=== PATIENT | female | born 1980 | race Caucasian/White ===

== ENCOUNTER 2018-01-07 18:40 | Inpatient (IN) | payer OTHER ==
[2018-01-07] MEDS ORDERED: BOOSTRIX IM ONE (18:53)
[2018-01-07] MEDS ORDERED: MORPHINE IV ONE ×2 (18:57→22:01)
[2018-01-07] MEDS ORDERED: MORPHINE ONE (18:58)
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
[2018-01-07] MEDS ORDERED: ANCEF/NS 1 GM/50 ML 1 GM/50 ML BAG IV ONE (19:30)
[2018-01-07] MEDS ORDERED: NACL 0.9% 1000 ML 1,000 ML ONE (19:47)
[2018-01-07] MEDS ORDERED: XYLOCAINE 1% 20 mL INFILTRATI ONE (20:00)
[2018-01-07 20:09] LABS: Basophils # (Auto) 0.1 K/mm3 (0.0-0.1); Basophils % (Auto) 0.6 % (0.0-1.8); Eosinophils # (Auto) 0.1 K/mm3 (0.0-0.4); Eosinophils % (Auto) 0.8 % (0.0-4.3); Hematocrit 39.3 % (30.3-42.9); Hemoglobin 13.2 gm/dl (10.1-14.3); Lymphocytes # (Auto) 2.1 K/mm3 (1.2-5.4); Lymphocytes % (Auto) 20.8 % (13.4-35.0); Mean Corpuscular HGB Conc 34 % (30-34); Mean Corpuscular Hemoglobin 30 pg (28-32); Mean Corpuscular Volume 91 fl (79-97); Monocytes # (Auto) 0.6 K/mm3 (0.0-0.8); Monocytes % (Auto) 5.9 % (0.0-7.3); Platelet Count 243 K/mm3 (140-440); Red Blood Count 4.34 M/mm3 (3.65-5.03); Red Cell Distribution Width 13.9 % (13.2-15.2)
[2018-01-07 20:31] LABS: BUN/Creatinine Ratio 25; Blood Urea Nitrogen 15 mg/dL (7-17); Calcium 8.6 mg/dL (8.4-10.2); Hemolysis Index 15
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
[2018-01-07] MEDS ORDERED: TYLENOL PO PRN (23:00)
[2018-01-07] MEDS ORDERED: ZOFRAN IV PRN (23:00)
[2018-01-07] MEDS ORDERED: SODIUM CHLORIDE FLUSH SYRINGE 10 ML IV PRN (23:00)
[2018-01-07] MEDS ORDERED: D50W (25GM) Syringe IV PRN (23:00)
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
[2018-01-08] MEDS: MORPHINE IV PRN ×4 (02:56→19:43)
[2018-01-08 05:25] LABS: Basophils % (Auto) 0.3 % (0.0-1.8); Eosinophils % (Auto) 0.2 % (0.0-4.3); Hematocrit 37.9 % (30.3-42.9); Hemoglobin 12.6 gm/dl (10.1-14.3); Lymphocytes # (Auto) 2.7 K/mm3 (1.2-5.4); Lymphocytes % (Auto) 28.2 % (13.4-35.0); Mean Corpuscular HGB Conc 33 % (30-34); Mean Corpuscular Hemoglobin 30 pg (28-32); Mean Corpuscular Volume 90 fl (79-97); Monocytes # (Auto) 0.6 K/mm3 (0.0-0.8); Monocytes % (Auto) 6.1 % (0.0-7.3); Platelet Count 272 K/mm3 (140-440); Red Blood Count 4.21 M/mm3 (3.65-5.03); Red Cell Distribution Width 14.1 % (13.2-15.2)
[2018-01-08 05:41] LABS: BUN/Creatinine Ratio 23; Blood Urea Nitrogen 9 mg/dL (7-17); Calcium 8.9 mg/dL (8.4-10.2); Hemolysis Index 1
[2018-01-08] MEDS ORDERED: ZEMURON IV ONE (11:43)
[2018-01-08] MEDS ORDERED: SUBLIMAZE ONE (11:43)
[2018-01-08] MEDS ORDERED: XYLOCAINE MPF 2% ONE (11:43)
[2018-01-08] MEDS ORDERED: DIPRIVAN 10 MG/ML IV ONE (11:43)
--- NOTE | 2018-01-08 12:10 | Anesthesia Day of Surgery ---
Anesthesia Day of Surgery - Day of Surgery Patient Examined: Yes Patient H&P Reviewed: Yes Patient is NPO: Yes Beta Blockers: No Cardiac Clearance: No Pulmonary Clearance: No
--- NOTE | 2018-01-08 12:10 | Anesthesia Consultation ---
Anesthesia Consult and Med Hx - Airway Anesthetic Teeth Evaluation: Good Mental/Hyoid Distance: Adequate Mallampati Class: Class II Intubation Access Assessment: Probably Good - Pulmonary Exam CTA: Yes - Cardiac Exam Cardiac Exam: RRR - Pre-Operative Health Status ASA Pre-Surgery Classification: ASA3 Proposed Anesthetic Plan: General - Pulmonary Hx Asthma: No COPD: No Hx Pneumonia: No - Cardiovascular System Hx Hypertension: Yes - Endocrine Hx End Stage Renal Disease: No
[2018-01-08] MEDS ORDERED: ANCEF/STERILE WATER 2 GM/20 ML IV NR (13:00)
[2018-01-08] MEDS ORDERED: NACL 0.9% 1000 ML 1,000 ML IV SCH (13:00)
[2018-01-08] MEDS ORDERED: MARCAINE 0.5% 30 ML INFILTRATI ONE (13:33)
[2018-01-08] MEDS ORDERED: TORADOL ONE (13:33)
[2018-01-08] MEDS ORDERED: NACL 0.9% 250ML 250 ML ONE (13:33)
[2018-01-08] MEDS ORDERED: MORPHINE ONE (13:33)
[2018-01-08] MEDS ORDERED: NACL 0.9% 250ML IRRIGATION ONE (14:14)
[2018-01-08] MEDS ORDERED: NACL 0.9% IR ONE (14:14)
[2018-01-08] MEDS ORDERED: TORADOL IV ONE (14:15)
[2018-01-08] MEDS ORDERED: MORPHINE IV ONE (14:15)
[2018-01-08] MEDS ORDERED: MARCAINE 0.5% INFILTRATI ONE (14:15)
[2018-01-08] MEDS ORDERED: ROBINUL ONE (15:03)
[2018-01-08] MEDS ORDERED: BLOXIVERZ ONE (15:03)
[2018-01-08] MEDS ORDERED: ZOFRAN ONE (15:03)
[2018-01-08] MEDS: DILAUDID IV PRN ×2 (15:37→15:45)
--- NOTE | 2018-01-08 15:58 | Procedure Note ---
Date of procedure: 01/08/18 Pre-op diagnosis: laceration right posterior calf Post-op diagnosis: same (lacerated flexor tendons and hallux is longus tendon lacerated posterior tibial nerve as well as lacerated Achilles tendon) Procedure: Exploration right calf laceration with repair of posterior tibial nerve flexor tendons including the flexor hallucis longus as well as the tendo Achilles Procedure The patient was brought to the [facility] ER table in the supine position following induction and intubation by anesthesia the patient was then turned into the prone position at which point the right lower extremity was prepped and draped in the usual sterile manner the leg was then exsanguinated followed by inflation of the pneumatic tourniquet to 300 mmHg suture from the ER was removed the patient was noted to have a 45 cm transverse laceration in the posterior aspect of her leg the incision was then enlarged both proximally and distally using Z-plasties the wound was explored deeply she was noted to have superficially 80% laceration to the Achilles tendon and carried it is inspection deeper the patient was noted to have a complete laceration of the posterior tibial nerve as well as a laceration essentially down to the posterior aspect of the tibia with involvement of her flexor tendons and flexor hallucis longus next the decision was made to repair the lacerated posterior tibial nerve this was done using magnification 6-0 nylon sutures were used to repair the perineural sheath this was done circumferentially for repair of the nerve attention was then turned to repairing the flexor tendons using #2 FiberWire suture and this these structures were repaired and into in the Achilles tendon was also repaired again using nonabsorbable FiberWire suture the wound was copiously irrigated and was closed primarily. Dressings were applied the ankle was maintained in maximum dorsiflexion to reduce tension on the nerve and tendon repair a well-padded posterior splint was applied the patient was then turned back into the supine position where she was extubated and taken to postanesthesia recovery Anesthesia: VIVIENNE Surgeon: VIRGINIA DUMONT Estimated blood loss: minimal Pathology: none Condition: stable Disposition: PACU
[2018-01-08] MEDS ORDERED: SODIUM CHLORIDE FLUSH SYRINGE 10 ML IV NR (16:00)
--- NOTE | 2018-01-08 16:33 | Progress Note ---
Assessment and Plan Assessment and plan: Assessment Acute Post Op pain Acute Archilles tear s/p surgery Elevated BP 2/2 pain Plan post op care optimal pain control inputs and reccs of the Ortho specialist appreciated am labs further pt mgt per hospital course Disposition Plan: per hospital course Total Time Spent with Patient (Minutes): 25 mins History Interval history: Pt admitted yesterday with a turn Right Archilles tendon. Had surgery this afternoon. Pt seen in PACU. Pt seen and exam, c/o severe post op pain to her Right leg. [employer]GE[employer] by bedside Hospitalist Physical - Constitutional Vitals: Temp Pulse Resp BP Pulse Ox 98.7 F 65 15 131/79 100 01/08/18 16:00 01/08/18 16:15 01/08/18 16:15 01/08/18 16:15 01/08/18 16:15 General appearance: Present: mild distress, well-nourished - EENT Eyes: Present: PERRL ENT: hearing intact, clear oral mucosa, dentition normal - Neck Neck: Present: supple, normal ROM - Respiratory Respiratory: bilateral: CTA, negative: rales, rhonchi, wheezing - Cardiovascular Rhythm: regular Heart Sounds: Present: S1 & S2 - Extremities Extremities: pulses intact Extremity abnormal: other (surgical dressing intact) Peripheral Pulses: within normal limits - Abdominal General gastrointestinal: soft, non-tender, normal bowel sounds - Integumentary Integumentary: Present: clear, warm, dry - Psychiatric Psychiatric: appropriate mood/affect, intact judgment & insight - Neurologic Neurologic: CNII-XII intact - Allied Health Allied health notes reviewed: nursing Results - Labs CBC & Chem 7: 01/08/18 04:40 01/08/18 04:40 Labs: Laboratory Last Values WBC 9.7 K/mm3 (4.5-11.0) 01/08/18 04:40 RBC 4.21 M/mm3 (3.65-5.03) 01/08/18 04:40 Hgb 12.6 gm/dl (10.1-14.3) 01/08/18 04:40 Hct 37.9 % (30.3-42.9) 01/08/18 04:40 MCV 90 fl (79-97) 01/08/18 04:40 MCH 30 pg (28-32) 01/08/18 04:40 MCHC 33 % (30-34) 01/08/18 04:40 RDW 14.1 % (13.2-15.2) 01/08/18 04:40 Plt Count 272 K/mm3 (140-440) 01/08/18 04:40 Lymph % (Auto) 28.2 % (13.4-35.0) 01/08/18 04:40 Greenlee % (Auto) 6.1 % (0.0-7.3) 01/08/18 04:40 Eos % (Auto) 0.2 % (0.0-4.3) 01/08/18 04:40 Baso % (Auto) 0.3 % (0.0-1.8) 01/08/18 04:40 Lymph # 2.7 K/mm3 (1.2-5.4) 01/08/18 04:40 Greenlee # 0.6 K/mm3 (0.0-0.8) 01/08/18 04:40 Eos # 0.0 K/mm3 (0.0-0.4) 01/08/18 04:40 Baso # 0.0 K/mm3 (0.0-0.1) 01/08/18 04:40 Seg Neutrophils % 65.2 % (40.0-70.0) 01/08/18 04:40 Seg Neutrophils # 6.3 K/mm3 (1.8-7.7) 01/08/18 04:40 Sodium 143 mmol/L (137-145) 01/08/18 04:40 Potassium 4.4 mmol/L (3.6-5.0) D 01/08/18 04:40 Chloride 105.4 mmol/L (98-107) 01/08/18 04:40 Carbon Dioxide 25 mmol/L (22-30) 01/08/18 04:40 Anion Gap 17 mmol/L 01/08/18 04:40 BUN 9 mg/dL (7-17) 01/08/18 04:40 Creatinine 0.4 mg/dL (0.7-1.2) L 01/08/18 04:40 Estimated GFR > 60 ml/min 01/08/18 04:40 BUN/Creatinine Ratio 23 % 01/08/18 04:40 Glucose 110 mg/dL (65-100) H 01/08/18 04:40 POC Glucose 122 (70-105) H 01/08/18 16:12 Calcium 8.9 mg/dL (8.4-10.2) 01/08/18 04:40 HCG, Qual Negative (Negative) 01/07/18 19:21 Blood Type B POSITIVE 01/07/18 19:21 Antibody Screen Negative 01/07/18 19:21 - Imaging and Cardiology Chest x-ray: report reviewed
[2018-01-08] MEDS: NACL 0.45% 1000 ML 1,000 ML IV SCH (19:35)
[2018-01-08] MEDS: ANCEF/NS 1 GM/50 ML 1 GM/50 ML BAG IV SCH (20:19)
[2018-01-08] MEDS: HumaLOG SUB-Q SCH (22:16)
[2018-01-08] MEDS: SODIUM CHLORIDE FLUSH SYRINGE 10 ML IV SCH (22:16)
[2018-01-09] MEDS: MORPHINE IV PRN ×4 (00:25→12:16)
[2018-01-09 02:36] LABS: Hematocrit 35.1 % (30.3-42.9); Hemoglobin 11.8 gm/dl (10.1-14.3); Mean Corpuscular HGB Conc 34 % (30-34); Mean Corpuscular Hemoglobin 30 pg (28-32); Mean Corpuscular Volume 90 fl (79-97); Platelet Count 245 K/mm3 (140-440); Red Cell Distribution Width 13.8 % (13.2-15.2)
[2018-01-09 02:38] LABS: BUN/Creatinine Ratio 20; Blood Urea Nitrogen 6 mg/dL (7-17); Calcium 8.6 mg/dL (8.4-10.2); Hemolysis Index 0
[2018-01-09] MEDS: ANCEF/NS 1 GM/50 ML 1 GM/50 ML BAG IV SCH (03:48)
[2018-01-09] MEDS: NACL 0.45% 1000 ML 1,000 ML IV SCH ×2 (06:39→20:30)
[2018-01-09] MEDS: HumaLOG SUB-Q SCH ×3 (08:11→21:36)
[2018-01-09] MEDS: LOVENOX SUB-Q SCH ×2 (08:11→10:00)
[2018-01-09] MEDS: SODIUM CHLORIDE FLUSH SYRINGE 10 ML IV SCH ×2 (12:24→21:37)
--- NOTE | 2018-01-09 13:45 | Progress Note ---
Assessment and Plan Assessment and plan: Acute Archilles tear s/p repair, postop day 1 -Continue narcotics for pain control -Surgery following Elevated BP 2/2 pain -Resolved NIDDM2, controlled -Continue SSI Disposition: Discharge patient when cleared by surgery team History Interval history: Patient complaining of pain in right lower extremity Hospitalist Physical - Constitutional Vitals: Temp Pulse Resp BP Pulse Ox 98.5 F 63 16 113/58 98 01/09/18 04:05 01/09/18 04:05 01/09/18 04:05 01/09/18 04:05 01/09/18 04:05 General appearance: Present: no acute distress - EENT Eyes: Present: PERRL, EOM intact ENT: hearing intact, clear oral mucosa - Neck Neck: Present: supple - Respiratory Respiratory effort: normal Respiratory: bilateral: CTA - Cardiovascular Rhythm: regular Heart Sounds: Present: S1 & S2 - Extremities Extremity abnormal: other (dressing over right lower extremity) - Abdominal General gastrointestinal: soft, non-tender, normal bowel sounds - Neurologic Neurologic: CNII-XII intact Results - Labs CBC & Chem 7: 01/09/18 01:48 01/09/18 01:48 Labs: Laboratory Last Values WBC 10.3 K/mm3 (4.5-11.0) 01/09/18 01:48 RBC 3.90 M/mm3 (3.65-5.03) 01/09/18 01:48 Hgb 11.8 gm/dl (10.1-14.3) 01/09/18 01:48 Hct 35.1 % (30.3-42.9) 01/09/18 01:48 MCV 90 fl (79-97) 01/09/18 01:48 MCH 30 pg (28-32) 01/09/18 01:48 MCHC 34 % (30-34) 01/09/18 01:48 RDW 13.8 % (13.2-15.2) 01/09/18 01:48 Plt Count 245 K/mm3 (140-440) 01/09/18 01:48 Lymph % (Auto) 28.2 % (13.4-35.0) 01/08/18 04:40 Peach % (Auto) 6.1 % (0.0-7.3) 01/08/18 04:40 Eos % (Auto) 0.2 % (0.0-4.3) 01/08/18 04:40 Baso % (Auto) 0.3 % (0.0-1.8) 01/08/18 04:40 Lymph # 2.7 K/mm3 (1.2-5.4) 01/08/18 04:40 Peach # 0.6 K/mm3 (0.0-0.8) 01/08/18 04:40 Eos # 0.0 K/mm3 (0.0-0.4) 01/08/18 04:40 Baso # 0.0 K/mm3 (0.0-0.1) 01/08/18 04:40 Seg Neutrophils % 65.2 % (40.0-70.0) 01/08/18 04:40 Seg Neutrophils # 6.3 K/mm3 (1.8-7.7) 01/08/18 04:40 Sodium 137 mmol/L (137-145) 01/09/18 01:48 Potassium 3.9 mmol/L (3.6-5.0) 01/09/18 01:48 Chloride 98.2 mmol/L (98-107) 01/09/18 01:48 Carbon Dioxide 25 mmol/L (22-30) 01/09/18 01:48 Anion Gap 18 mmol/L 01/09/18 01:48 BUN 6 mg/dL (7-17) L 01/09/18 01:48 Creatinine 0.3 mg/dL (0.7-1.2) L 01/09/18 01:48 Estimated GFR > 60 ml/min 01/09/18 01:48 BUN/Creatinine Ratio 20 % 01/09/18 01:48 Glucose 146 mg/dL (65-100) H 01/09/18 01:48 POC Glucose 132 (70-105) H 01/09/18 12:26 Calcium 8.6 mg/dL (8.4-10.2) 01/09/18 01:48 HCG, Qual Negative (Negative) 01/07/18 19:21 Blood Type B POSITIVE 01/07/18 19:21 Antibody Screen Negative 01/07/18 19:21
[2018-01-09] MEDS: DILAUDID IV PRN ×2 (15:44→20:31)
[2018-01-10] MEDS: PERCOCET 5/325 PO PRN ×5 (00:12→21:35)
[2018-01-10] MEDS: HumaLOG SUB-Q SCH ×3 (08:34→21:26)
[2018-01-10] MEDS: LOVENOX SUB-Q SCH (09:46)
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
[2018-01-10] MEDS: SODIUM CHLORIDE FLUSH SYRINGE 10 ML IV SCH ×2 (15:11→21:37)
[2018-01-11 01:23] LABS: Hematocrit 33.4 % (30.3-42.9); Hemoglobin 11.4 gm/dl (10.1-14.3); Mean Corpuscular HGB Conc 34 % (30-34); Mean Corpuscular Hemoglobin 31 pg (28-32); Mean Corpuscular Volume 89 fl (79-97); Platelet Count 252 K/mm3 (140-440); Red Blood Count 3.75 M/mm3 (3.65-5.03); Red Cell Distribution Width 13.5 % (13.2-15.2)
[2018-01-11] MEDS: PERCOCET 5/325 PO PRN ×3 (05:10→15:19)
[2018-01-11] MEDS: LOVENOX SUB-Q SCH (09:22)
[2018-01-11] MEDS: HumaLOG SUB-Q SCH ×2 (09:25→12:00)
--- NOTE | 2018-01-11 10:53 | Discharge Summary ---
Providers - Providers Date of Admission: 01/07/18 23:00 Attending physician: SAVANNA ZIMMERMAN MD 01/07/18 21:58 Consult to Physician [CONS] Routine Comment: Dr. So spoke with Dr. Saul @ [id number] Consulting Provider: VIRGINIA SAUL Physician Instructions: Reason For Exam: achilles tendon laceration 01/08/18 15:52 Physical Therapy Evaluation and Treat [CONS] Routine Comment: Reason For Exam: postoperative evaluation Weight bearing status?: Nonwt bearing Assistive devices?: Yes If so list: Walker Primary care physician: POT SANDER Hospitalization Reason for admission: achillies tendon tear Condition: Stable Hospital course: 37-year-old woman with history of diabetes comes to the the emergency room for evaluation of bleed in of the lower extremity. Patient stated there was a prior in the house, she kicked opened last door and sustained a laceration to the leg. When she arrived in the emergency room the Achilles tendon was severed, ER Physician and stated he was unable to completely close the wound. suture attempt was made in the ED with orthopedic consulted and pateint underwent Exploration right calf laceration with repair of posterior tibial nerve flexor tendons including the flexor hallucis longus as well as the tendo Achilles with pain control and advised to follow with Ortho Outpatient. Patient was also advised on PT outpatient. Acute Post Op pain, persistent Acute Archilles tear s/p surgery Disposition: [id number] HOME UNDER HOME [facility] Time spent for discharge: 35 mins Core Measure Documentation - Palliative Care Palliative Care/ Comfort Measures: Not Applicable - Core Measures Any of the following diagnoses?: none - VTE Discharge Requirements Deep Vein Thrombosis/Pulmonary Embolism Present on Admission: No Exam - Physical Exam Narrative exam: General appearance: Present: mild distress, well-nourished - EENT Eyes: Present: PERRL, EOM intact ENT: hearing intact, clear oral mucosa, dentition normal - Neck Neck: Present: supple, normal ROM - Respiratory Respiratory effort: normal Respiratory: bilateral: CTA, negative: diminished, rales, rhonchi - Cardiovascular Rhythm: regular Heart Sounds: Present: S1 & S2 - Extremities Extremities: no ischemia, pulses intact, normal temperature (surgical dressing intact), normal color - Abdominal General gastrointestinal: soft, non-tender, non-distended, normal bowel sounds - Integumentary Integumentary: Present: clear, warm, dry - Psychiatric Psychiatric: appropriate mood/affect, intact judgment & insight, cooperative - Neurologic Neurologic: CNII-XII intact, moves all extremities, other (reduced movement of RLE due to pain) - Allied Health Allied health notes reviewed: nursing - Constitutional Vitals: Temp Pulse Resp BP Pulse Ox 98.6 F 56 L 18 113/62 98 01/11/18 07:08 01/11/18 07:08 01/11/18 07:08 01/11/18 07:08 01/11/18 08:01 Plan Activity: advance as tolerated, up only with assistance Weight Bearing Status: Non-Weight Bearing Diet: regular Durable Medical Equipment Needed Upon Discharge: Walker-Rolling Follow up with: PRIMARY CAREMD [Primary Care Provider] - 3-5 Days VIRGINIA SAUL MD [Staff Physician] - 7 Days Prescriptions: Ibuprofen [Motrin 800 MG tab] 800 mg PO Q8HR PRN #20 tablet PRN Reason: Pain oxyCODONE /ACETAMINOPHEN [Percocet 5/325 mg] 2 tab PO Q4-6H PRN #14 tablet PRN Reason: Pain, Moderate (4-6)
[2018-01-11 12:22] VITALS: BP 120/76
== END 2018-01-11 19:10 | disposition home health service (06) | DRG 502 ==
LOC: ED 18:40 → 4A 23:00 → 3B-SURG 01-08 09:03
PROVIDERS: ADMIT Internal Medicine; ATTEND Internal Medicine
PROC: 0LQN0ZZ Repair Right Lower Leg Tendon, Open Approach (ICD-10-PCS; principal; 2018-01-08)
DX: S86.021A Laceration of right Achilles tendon, initial encounter (principal); E11.9 Type 2 diabetes mellitus without complications; W45.8XXA Other foreign body or object entering through skin, initial encounter; Y93.89 Activity, other specified; Y92.098 Other place in other non-institutional residence as the place of occurrence of the external cause; Y99.8 Other external cause status; S81.811A Laceration without foreign body, right lower leg, initial encounter; I10 Essential (primary) hypertension; G89.18 Other acute postprocedural pain
CPT/HCPCS: 36415; 80048; 82962; 84703; 85025; 85027; 86850; 86900; 86901; 90715; 94760; J0690; J1170; J1650; J1885; J2270; J2405; J2704; J2710; J3010; J7030; J7050